=== PATIENT | male | born 1980 | race Caucasian/White ===

== ENCOUNTER 2018-01-08 15:09 | Emergency (ER) | payer MEDICAID, OTHER ==
[~2018-01-08] VITALS: Ht 182.9 cm; Wt 81.6 kg
[2018-01-08 15:09] VITALS: BP_SYST 128
[~2018-01-08 15:09] MED LIST: ADDERALL; KLO2 PO; ZYPREXA PO
[2018-01-08 17:00] VITALS: BP_SYST 128
== END 2018-01-08 17:00 | disposition home or self-care (01) ==
LOC: SED 15:09
DX: Z76.0 Encounter for issue of repeat prescription (principal); F17.200 Nicotine dependence, unspecified, uncomplicated; F20.9 Schizophrenia, unspecified; F41.9 Anxiety disorder, unspecified; F31.9 Bipolar disorder, unspecified; Z79.899 Other long term (current) drug therapy
CPT/HCPCS: 99283